=== PATIENT | male | born 1950 | race Asian ===

== ENCOUNTER 2017-10-26 08:15 | Day surgery (SDC) | payer MEDICARE ==
[~2017-10-26] VITALS: Ht 170.2 cm; Wt 73.2 kg
[~2017-10-26 08:15] MED LIST: ASPI-1182 PO; LISI1TAB11 PO; METF500T6 PO; RINGERS SOLUTION,LACTATED 500 ML IV ONE
[2017-10-26] MEDS ORDERED: MIDAZOLAM HCL 2 MG/2 ML VIAL IVP ONE (08:16)
[2017-10-26] MEDS ORDERED: FentaNYL CITRATE-PF 100 MCG/2 ML VIAL IVP ONE (08:16)
[2017-10-26] MEDS ORDERED: TROPICAMIDE 1% 2 ML OPHTHALMIC SOLUTION ONE (08:24)
[2017-10-26] MEDS ORDERED: DICLOFENAC SODIUM 0.1% 2.5 ML OPHTHALMIC SOLUTION ONE (08:24)
[2017-10-26] MEDS ORDERED: PHENYLEPHRINE HCL 2.5% 2 ML OPHTHALMIC SOLUTION ONE (08:24)
[2017-10-26] MEDS ORDERED: MOXIFLOXACIN HCL 0.5% 3 ML OPHTHALMIC SOLUTION ONE (08:24)
[2017-10-26 08:59] LABS: GLUCOMETER DEV NAME(LOC) SDS 5; GLUCOSE,POINT OF CARE 126 MG/DL (70-110)
[2017-10-26] MEDS ORDERED: MOXIFLOXACIN HCL 0.5% 3 ML OPHTHALMIC SOLUTION OD ONE (09:00)
[2017-10-26] MEDS ORDERED: 0.9% SODIUM CHLORIDE 10 ML SYRINGE IVP PRN (09:00)
[2017-10-26] MEDS ORDERED: RINGERS SOLUTION,LACTATED 500 ML IV ONE (09:00)
[2017-10-26] MEDS ORDERED: DICLOFENAC SODIUM 0.1% 2.5 ML OPHTHALMIC SOLUTION OD ONE (09:00)
[2017-10-26] MEDS: TROPICAMIDE 1% 2 ML OPHTHALMIC SOLUTION OD SCH ×2 (09:12→09:18)
[2017-10-26] MEDS: PHENYLEPHRINE HCL 2.5% 2 ML OPHTHALMIC SOLUTION OD SCH ×2 (09:12→09:18)
[2017-10-26] MEDS ORDERED: HYALURONATE SOD/CHONDROITIN SOD 0.5 ML VIAL IO ONE (16:59)
[2017-10-26] MEDS ORDERED: DEXAMETHASONE SOD PHOS 4 MG/ML VIAL ONE (16:59)
[2017-10-26] MEDS ORDERED: TETRACAINE HCL VISCOUS 0.5% 0.6 ML OPHTHALMIC SOLUTION ONE (16:59)
[2017-10-26] MEDS ORDERED: LIDOCAINE HCL 1% 20 ML VIAL ONE (16:59)
[2017-10-26] MEDS ORDERED: POVIDONE-IODINE 10% 15 ML SOLUTION UD ONE (16:59)
[2017-10-26] MEDS ORDERED: MICONAZOLE NITRATE 200 MG VAGINAL SUPP [3] VG ONE (16:59)
[2017-10-26] MEDS ORDERED: HYALURONATE SODIUM 12 MG/ML 0.8 ML SYRINGE IO ONE (16:59)
== END 2017-10-26 11:55 | disposition home or self-care (01) ==
LOC: SURGERY 08:15
PROVIDERS: ATTEND Specialist
DX: E11.36 Type 2 diabetes mellitus with diabetic cataract (principal); H25.011 Cortical age-related cataract, right eye; H40.89 Other specified glaucoma; I10 Essential (primary) hypertension; I45.81 Long QT syndrome; Z87.891 Personal history of nicotine dependence; Z72.89 Other problems related to lifestyle; Z79.82 Long term (current) use of aspirin; Z79.84 Long term (current) use of oral hypoglycemic drugs; Z79.899 Other long term (current) drug therapy; Z98.890 Other specified postprocedural states
CPT/HCPCS: 65785; 66984; 82962; 93005; C1780; J2250; J3010; J7120; J1100; J3490